=== PATIENT | female | born 1985 | race Two or more races ===

== ENCOUNTER 2017-11-06 14:49 | Inpatient (IN) | payer OTHER ==
[2017-11-06 15:38] LABS: APPEARANCE,URINE SLIGHTLY-CLOUDY; BILIRUBIN,URINE NEGATIVE (NEGATIVE); CALCIUM OXALATE CRYSTALS,URINE FEW /HPF; COLOR,URINE YELLOW; GLUCOSE, URINE NEGATIVE (NEGATIVE); KETONES,URINE NEGATIVE (NEGATIVE); LEUKOCYTE ESTERASE,URINE TRACE (NEGATIVE); NITRITE,URINE NEGATIVE (NEGATIVE); PROTEIN,URINE 30 mg/dL (NEGATIVE); URINE SPECIFIC GRAVITY 1.026
[2017-11-06 15:42] LABS: AMNISURE (ROM) NEGATIVE (NEGATIVE)
[2017-11-06 15:51] LABS: URINE AMPHETAMINES SCREEN NEGATIVE; URINE BARBITURATES SCREEN NEGATIVE; URINE BENZODIAZEPINES SCREEN NEGATIVE; URINE COCAINE SCREEN NEGATIVE; URINE MARIJUANA (THC) SCREEN NEGATIVE; URINE METHADONE SCREEN NEGATIVE; URINE PHENCYCLIDINE SCREEN NEGATIVE
[2017-11-06 16:53] LABS: ABSOLUTE BASOPHILS # (AUTO) 0.1 10^3/uL (0.0-0.2); ABSOLUTE EOSINOPHILS # (AUTO) 0.1 10^3/uL (0.0-0.6); ABSOLUTE LYMPHOCYTES (AUTO) 1.6 10^3/uL (0.5-4.7); ABSOLUTE MONOCYTES (AUTO) 0.9 10^3/uL (0.1-1.4); ABSOLUTE NEUT (AUTO) 8.6 10^3/uL (1.7-8.2); BASOPHILS % (AUTO) 0.5 % (0-2); EOSINOPHILS % (AUTO) 0.5 % (0-6); HEMATOCRIT 32.6 % (36.0-47.0); HEMOGLOBIN 10.7 g/dL (12.0-15.5); LYMPHOCYTES % (AUTO) 14.1 % (13-45); MEAN CORPUSCULAR HEMOGLOBIN 24.4 pg (27.0-33.4); MEAN CORPUSCULAR VOLUME 74 fl (80-97); MONOCYTES % (AUTO) 8.4 % (3-13); PLATELET COUNT 184 10^3/uL (150-450); RED CELL DISTRIBUTION WIDTH 15.5 % (11.5-14.0); SEGMENTED NEUTROPHILS % (AUTO) 76.5 % (42-78); TOTAL CELLS COUNTED % (AUTO) 100 %; WHITE BLOOD COUNT 11.2 10^3/uL (4.0-10.5)
[2017-11-06] MEDS ORDERED: RINGERS SOLUTION,LACTATED 300 ML IV ONE (16:57)
[2017-11-06] MEDS ORDERED: RINGERS SOLUTION,LACTATED 1,000 ML IV PRN (16:57)
[2017-11-06 17:15] LABS: ALANINE AMINOTRANSFERASE 21 U/L (9-52); ALBUMIN 3.5 g/dL (3.5-5.0); ALKALINE PHOSPHATASE 314 U/L (38-126); ANION GAP 10 (5-19); ASPARTATE AMINO TRANSFERASE 15 U/L (14-36); BILIRUBIN,DIRECT 0.2 mg/dL (0.0-0.4); BILIRUBIN,TOTAL 0.8 mg/dL (0.2-1.3); BLOOD UREA NITROGEN 8 mg/dL (7-20); CALCIUM 9.6 mg/dL (8.4-10.2); CARBON DIOXIDE 22 mmol/L (22-30); CHLORIDE 106 mmol/L (98-107); GLUCOSE 66 mg/dL (75-110); LDH 458 U/L (313-618); POTASSIUM 3.9 mmol/L (3.6-5.0); TOTAL PROTEIN 6.7 g/dL (6.3-8.2); URIC ACID 4.5 mg/dL (2.5-6.2)
[2017-11-06 17:43] LABS: UR PRO/CREAT RATIO RESULT 0.1 mg/mg (0.0-0.2); URINE PROTEIN 28.4 mg/dL (<12)
[2017-11-06] MEDS ORDERED: DINOPROSTONE 10 MG VAGINAL INSERT.SR ONE (20:30)
[2017-11-06] MEDS: DINOPROSTONE 10 MG VAGINAL INSERT.SR PV PRN (21:01)
[2017-11-06] MEDS ORDERED: HYDRALAZINE HCL INJ/PF 20 MG/1 ML SDV IV ONE (23:55)
--- NOTE | 2017-11-07 01:01 | L&D Progress Notes ---
PROGRESS NOTES Datetime Report Generated by CPN: 11/07/2017 01:01 PROGRESS NOTE Impression: Normal Progression of Labor Plan: Continue Present Management; Induction Informed Consent Obtained: Vaginal Delivery; Induction of Labor Informed Consent Obtained: Vaginal Delivery; Risks, Benefits and Alternatives Discussed Vital Signs : Reviewed; Within Normal Limits Comment: FHR baseline 160. irregular contractions on Cervidil. Spontaneous intermittent decels unrelated to contractions. Currently reassuring FHR tracing. VAGINAL EXAM Dilatation: 0 Effacement: th Station: hi Contractions: none MEMBRANES Membranes: Intact FETUS A Presentation: Vertex SIGNATURE SIGNATURE: [id number] Signature: with User ID: [email or web address]
[2017-11-07] MEDS ORDERED: LIDOCAINE 1% INJ-PF (10 MG/ML) 30 ML SDV ONE (03:24)
[2017-11-07] MEDS ORDERED: MISOPROSTOL 0.2 MG TABLET ONE (03:24)
[2017-11-07] MEDS ORDERED: OXYTOCIN/NORMAL SALINE 20 UNIT/1,000 ML RTUINJ ONE (03:24)
[2017-11-07] MEDS ORDERED: HYDRALAZINE HCL INJ/PF 20 MG/1 ML SDV IV ONE (03:52)
[2017-11-07] MEDS ORDERED: HYDRALAZINE HCL INJ/PF 20 MG/1 ML SDV ONE ×2 (03:57)
[2017-11-07] MEDS: DINOPROSTONE 10 MG VAGINAL INSERT.SR PV PRN (04:04)
--- NOTE | 2017-11-07 04:32 | L&D Progress Notes ---
PROGRESS NOTES Datetime Report Generated by CPN: 11/07/2017 04:32 PROGRESS NOTE Impression: Normal Progression of Labor Procedures: Sterile Vag Exam Plan: Continue Present Management Informed Consent Obtained: Vaginal Delivery; Risks, Benefits and Alternatives Discussed Vital Signs : Reviewed Comment: Admitted to labor and delivery for IOL due to severe oligo with SDP 1.1cm. in to evaluate patient due to cervidil fell out - currently not on pitocin. Cvx now 1. Pt has h/o possible malignant hyperthermia. Anesthesia was consulted and feels that it is unsafe for epidural at this time. baby is reassuring but not reactive at this time but not able to give IV narcotics at this time. Anticpate . Reviewed pudendal block if desires. VAGINAL EXAM Dilatation: 4 Effacement: 90 Station: -1 Contractions: q 2-3 FETUS A FHR - Baseline: 155 Monitoring: External US Variability: Moderate 6-25bpm Accelerations: 15X15 Decelerations: None FHR Category: Category I FETUS C SIGNATURE: [id number] Signature: with User ID: [email or web address]
[2017-11-07] MEDS ORDERED: FENTANYL CITRATE INJ/PF 100 MCG/2 ML AMPUL IV ONE (05:08)
[2017-11-07] MEDS ORDERED: FENTANYL CITRATE INJ/PF 100 MCG/2 ML AMPUL ONE (05:17)
[2017-11-07] MEDS ORDERED: NALOXONE HCL INJ/PF 0.4 MG/1 ML SDV ONE (05:33)
[2017-11-07] MEDS ORDERED: ACETAMINOPHEN WITH CODEINE #3 TABLET ONE (06:57)
[2017-11-07] MEDS ORDERED: IBUPROFEN 800 MG TABLET ONE (06:58)
[2017-11-07] MEDS ORDERED: ZOLPIDEM TARTRATE 5 MG TABLET PO PRN (07:00)
[2017-11-07] MEDS ORDERED: DIPH/PERTUSS(ACELL)/TETANUS VAC/PF 0.5 ML SYR (>=10YO) IM PRN (07:00)
[2017-11-07] MEDS ORDERED: ACETAMINOPHEN WITH CODEINE #3 TABLET PO PRN ×2 (07:00)
[2017-11-07] MEDS ORDERED: DIBUCAINE 1% OINTMENT 28 GM TP PRN (07:00)
[2017-11-07] MEDS ORDERED: BENZOCAINE/MENTHOL AEROSOL SPRAY 56 ML TOP PRN (07:00)
[2017-11-07] MEDS ORDERED: MEASLES,MUMPS&RUBELLA VACC/PF 0.5 ML VIAL SUBCUT PRN (07:00)
[2017-11-07] MEDS ORDERED: OXYTOCIN/NORMAL SALINE 20 UNIT/1,000 ML RTUINJ IV PRN (07:00)
[2017-11-07] MEDS ORDERED: GLYCERIN/WITCH HAZEL LEAF 1 EACH MED..PAD TP PRN (07:01)
[2017-11-07] MEDS ORDERED: PROMETHAZINE HCL 25 MG TABLET PO PRN (07:01)
[2017-11-07] MEDS ORDERED: PSEUDOEPHEDRINE HCL 30 MG TABLET PO PRN (07:01)
[2017-11-07] MEDS ORDERED: MAGNESIUM HYDROXIDE SUSP 30 ML UDCUP PO PRN (07:01)
[2017-11-07] MEDS ORDERED: PROMETHAZINE HCL 25 MG SUPP.RECT PR PRN (07:01)
[2017-11-07] MEDS ORDERED: NA PHOS,M-B/NA PHOS,DI-BA (ADULT) 133 ML ENEMA PR PRN (07:01)
[2017-11-07] MEDS ORDERED: PROMETHAZINE HCL INJ 25 MG/1 ML VIAL IV PRN (07:01)
[2017-11-07] MEDS ORDERED: DIPHENHYDRAMINE HCL 25 MG CAPSULE PO PRN (07:01)
[2017-11-07] MEDS ORDERED: ACETAMINOPHEN 650 MG SUPP.RECT PR PRN (07:01)
[2017-11-07] MEDS ORDERED: NIFEDIPINE 30 MG TAB.ER.24 PO ONE (07:28)
[2017-11-07] MEDS ORDERED: NIFEDIPINE 30 MG TAB.ER.24 PO SCH (08:00)
--- NOTE | 2017-11-07 08:25 | Warning Signs in Babies ---
VOD Warning Signs Datetime Report Generated by [facility]: 11/07/2017 08:24 VOD#608 -Warning Signs in Babies: Needs to be viewed. (11/07/2017 07:45:Madina Watson RN)
--- NOTE | 2017-11-07 10:10 | Admission Physical ---
Datetime Report Generated by CPN: 11/07/2017 10:10 CURRENT ADMISSION Chief Complaint: Signs/Symptoms Gestational HTN Indication for Induction: Post Dates; Gestational HTN Indication for Induction: Term, Intrauterine ; No Active Labor; Intact Membranes; Induction of Labor Admit Plan: Admit to Unit; Initiate Labor Induction Protocol ALLERGIES Medication Allergies: No Medication Allergies: No Known Allergies (11/06/2017) Latex: No Latex Allergies OBSTETRICAL HISTORY EDC: 10/31/2017 00:00 : 4 Para: 1 Term: 1 : 0 SAB: 1 IAB: 1 Ectopic: 0 Livin Cesareans: 0 VBACs: 0 Multiple Births: 0 Gestational Diabetes: No Rh Sensitization: No Incompetent Cervix: No PAULA: No Infertility: No ART Treatment: No Uterine Anomaly: No IUGR: No Hx Previous C/S: No Macrosomia: No Hx Loss/Stillborn: No PIH: Yes Hx : No Placenta Previa/Abruption: No Depression/PP Depression: Yes PTL/PROM: No Post Hemorrhage: No Current Procedures: Ultrasound; NST Obstetrical History Comments: G1: , 2009 G2: EAB 2015 G3: 2015 G4: current, oligo (was poly as of 09/2017 then oligo determined from [facility] u/s), GHTN, uterine fibroid SEE RECORDS Alcohol: No Marijuana : No Cocaine: No Other Illicit Drugs: No Cigarettes: Former Smoker. [id number] MEDICAL HISTORY Diabetes: No Blood Transfusion: No Pulmonary Disease (Asthma, TB): No Breast Disease: No Hypertension: No Sleeping Car Porter Surgery: No Heart Disease: No Hosp/Surgery: Yes Autoimmune Disorder: No Anesthetic Complications: No Kidney Disease: No Abnormal Pap Smear: No Neuro/Epilepsy: No Psychiatric Disorders: Yes Other Medical Diseases: No Hepatitis/Liver Disease: No Significant Family History: No Varicosities/Phlebitis: No Trauma/Violence : No Thyroid Dysfunction: No Medical History Comments: childbirth, depression and anxiety, anesthesia reaction (wisdom teeth surgery; possible malignant hyperthermia?) INFECTIOUS HISTORY Gonorrhea: No Genital Herpes: Yes Chlamydia: No Tuberculosis: No Syphilis: No Hepatitis: No HIV/AIDS Exposure: No Rash or Viral Illness: No HPV: No Infectious History Comments: acycolvir daily, genital herpes (last outbreak 6 years ago) PHYSICAL EXAM General: Normal HEENT: Normal Neurologic: Normal Thyroid: Deferred Heart: Normal Lungs: Normal Breast: Deferred Back: Normal Abdomen: Normal Genitourinary Exam: Normal Extremities: Normal DTRs: Normal Pelvic Type: Adequate Vital Signs: Reviewed Details Vital Signs: mild and severe range BPs VAGINAL EXAM Dilatation: 4 Dilatation: 0 Effacement: 90 Effacement: th Station: -1 Station: hi Contraction Comments: q 2-3 Contraction Comments: none MEMBRANES Membranes: Intact FETUS A EGA: 40.6 FHR- Baseline: 155 Variability: Moderate 6-25bpm Accelerations: 15X15 Decelerations: None Presentation: Vertex Admit Comment: 32yo at 40+6ega presents for evaluation from the office due to elevated BPs and GILLES 2.03 (SDP is 1.1cm). Severe Oligohydramnios with GHTN. PIH labs within normal limits at this time. Pt with severe range pressures upon presenting to L_D then normalized. Pt is late transfer of care at 36+6ega. Negative GBS. H/o HSV - no lesions, no prodrome. No lesions on exam. care complicated by obesity. normal Glucola. Reviewed IOL due to severe oligohydramnios. IOL consents reviewed. Plan for cervidil IOL and then transition to pitocin when appropriate. PLANS FOR LABOR AND DELIVERY Labor and Delivery: None Pain Management: Epidural Feeding Preference: Breast Benefit of Breast Feed Discussed: Yes Circumcision: Yes INFORMED CONSENT Informed Consent Obtained: Vaginal Delivery; Risks, Benefits and Alternatives Discussed Informed Consent Obtained: Vaginal Delivery; Induction of Labor Informed Consent Obtained: Vaginal Delivery; Risks, Benefits and Alternatives Discussed Signature: with User ID: [email or web address]
[2017-11-07] MEDS: DOCUSATE SODIUM 100 MG CAPSULE PO SCH ×2 (10:34→18:26)
[2017-11-07] MEDS: SENNOSIDES/DOCUSATE 8.6-50 MG 1 EACH TABLET PO SCH (10:34)
[2017-11-07] MEDS: FERROUS SULFATE 325 MG TABLET PO SCH ×2 (10:35→18:26)
[2017-11-07] MEDS: PRENATAL VITAMIN W DHA CAPSULE PO SCH (10:35)
[2017-11-07] MEDS: FAMOTIDINE 20 MG TABLET PO SCH ×2 (10:35→21:47)
[2017-11-07] MEDS: IBUPROFEN 800 MG TABLET PO SCH ×2 (14:00→21:47)
[2017-11-08] MEDS: IBUPROFEN 800 MG TABLET PO SCH ×2 (05:28→14:19)
[2017-11-08 07:50] LABS: HEMATOCRIT 31.4 % (36.0-47.0); HEMOGLOBIN 10.1 g/dL (12.0-15.5); MEAN CORPUSCULAR HEMOGLOBIN 24.2 pg (27.0-33.4); MEAN CORPUSCULAR HGB CONC 32.2 g/dL (32.0-36.0); MEAN CORPUSCULAR VOLUME 75 fl (80-97); PLATELET COUNT 184 10^3/uL (150-450); RED BLOOD COUNT 4.19 10^6/uL (3.72-5.28); RED CELL DISTRIBUTION WIDTH 16.1 % (11.5-14.0); WHITE BLOOD COUNT 13.1 10^3/uL (4.0-10.5)
[2017-11-08] MEDS ORDERED: NIFEDIPINE 30 MG TAB.ER.24 PO SCH (08:00)
[2017-11-08 08:30] VITALS: BP 143/92
[2017-11-08] MEDS: SENNOSIDES/DOCUSATE 8.6-50 MG 1 EACH TABLET PO SCH (09:39)
[2017-11-08] MEDS: PRENATAL VITAMIN W DHA CAPSULE PO SCH (09:39)
[2017-11-08] MEDS: DOCUSATE SODIUM 100 MG CAPSULE PO SCH (09:40)
[2017-11-08] MEDS: FAMOTIDINE 20 MG TABLET PO SCH (09:40)
[2017-11-08] MEDS: FERROUS SULFATE 325 MG TABLET PO SCH (09:41)
--- NOTE | 2017-11-08 09:59 | PDOC PROGRESS REPORT ---
Subjective-OB Subjective: Post Delivery Day: 32 year old. Denies any needs at this time Doing well, no c/o, breast feeding, voiding, moderate bleeding Physical Exam (OB) Vital Signs: Temp Pulse Resp BP Pulse Ox 98.8 F 78 16 143/92 H 99 11/08/17 08:25 11/08/17 08:25 11/08/17 08:25 11/08/17 08:25 11/08/17 08:25 Intake & Output 11/07/17 11/08/17 11/09/17 06:59 06:59 06:59 Weight 117.934 kg - PIH/Pre-Eclampsia DTR's: 2 + Clonus: Negative Headache: Absent Epigastric Pain: No Visual Changes: No - Lochia Lochia Amount: Scant < 10 ml Lochia Color: Rubra/Red - Abdomen Description: Soft, Round Hernia Present: No Fundal Description: Firm, Midline Fundal Height: u/u - u/2 Objective-Diagnostic Laboratory: 11/08/17 07:23 11/06/17 16:34 11/08/17 07:23 WBC 13.1 H RBC 4.19 Hgb 10.1 L Hct 31.4 L MCV 75 L MCH 24.2 L MCHC 32.2 RDW 16.1 H Plt Count 184 Assessment and Plan(PN) - Assessment and Plan (1) Gestational hypertension Qualifiers: Trimester: unspecified trimester Qualified Code(s): O13.9 - Gestational [ -induced] hypertension without significant proteinuria, unspecified trimester Is this a current diagnosis for this admission?: Yes (2) Oligohydramnios in third trimester Qualifiers: Fetus number: single or unspecified fetus Qualified Code(s): O41.03X0 - Oligohydramnios, third trimester, not applicable or unspecified Is this a current diagnosis for this admission?: Yes - Time Spent with Patient Time with patient: Less than 15 minutes Medications reviewed and adjusted accordingly: Yes - Disposition Anticipated Discharge: Home Within: within 24 hours
--- NOTE | 2017-11-08 11:02 | PDOC DISCHARGE SUMMARY ---
Final Diagnosis Discharge Date: 11/08/17 - Final Diagnosis (1) Gestational hypertension Is this a current diagnosis for this admission?: Yes (2) Oligohydramnios in third trimester Is this a current diagnosis for this admission?: Yes Discharge Data - Discharge Medication Prescriptions: Nifedipine [Procardia XL 30 mg Tablet] 60 mg PO DAILY@0800 #30 tab.er.24 Home Medications: Pnv 102/Iron/Folate 1/Dss/Dha [Vitafol Fe+ Docusate Combo Pck] 1 cap PO DAILY Nifedipine [Procardia XL 30 mg Tablet] 60 mg PO DAILY@0800 #30 tab.er.24 Gestational Age: 41 Reason(s) for Admission: Induction of Labor, Obstetric Complications Admission Note: Oligohydramnios Procedures: NST, Ultrasound Intrapartum Procedure(s): Spontaneous Vaginal Delivery - [place] Data Baby 1 Male at 1 minute: 8 at 5 minutes: 9 Weight: 3.487 kg Home with Mother: Yes Complications: No - Diagnosis Test Laboratory: Temp Pulse Resp BP Pulse Ox 98.8 F 78 16 143/92 H 99 11/08/17 08:25 11/08/17 08:25 11/08/17 08:25 11/08/17 08:25 11/08/17 08:25 11/06/17 11/06/17 11/08/17 15:16 16:34 07:23 RBC 4.40 4.19 Hgb 10.7 L 10.1 L Hct 32.6 L 31.4 L Urine Opiates Screen NEGATIVE - Discharge information/Instructions Discharge Activity: Activity As Tolerated, No Lifting Over 10 Pounds, No Lifting /Push/Pulling, Pelvic Rest Discharge Diet: As Tolerated, Regular Disposition: HOME, SELF-CARE Follow up with: [facility] in: 2, Days - check BP in office on Thursday
--- NOTE | 2017-11-24 15:36 | Delivery Summary ---
Del Sum A-C Datetime Report Generated by CPN: 11/24/2017 15:35 DELIVERY PERSONNEL DELIVERY PERSONNEL: [id number] Delivery Doctor:: Claudia Dover MD Labor and Delivery Nurse:: Mana Dumont RNmash filter cloth changer Nurse:: Mana Dumont RNmash filter cloth changer Nurse:: Oralia Stearns RNmash filter cloth changer Nurse:: Oralia Stearns RN Retail Merchandiser:: Krystal Mujica RN Medical Scribe/PHARMACY TEACHER: Josué Rendon CNA Additional Personnel: : Krystal Mujica RN MATERNAL INFORMATION Delivery Anesthesia: None Delivery Anesthesia: None Medications After Delivery: Pitocin Drip 20 Units/1000ml NSS Medications After Delivery: Pitocin Bolus-Please Comment; Pitocin Drip 20 Units/1000ml NSS Estimated Blood Loss (ml): 300 Maternal Complications: None Provider Comments: VMI delivered in DARLE[place] presentation. No nuchal cord. Shoulders and body delivered without difficulty. Cord doubly clamped and cut. Infant to warmer for NRP. Placenta delivered intact spontaneously. FF at U. no perineal lacerations. No maternal anesthesia. No repair needed. mother and baby stable upon provider leaving the room. LABOR SUMMARY EDC: 10/31/2017 00:00 No. Babies in Womb: 1 Attempted: No Labor Anesthesia: None LABOR INFORMATION Reason for Induction: Oligohydramnios Onset of Labor: 11/07/2017 03:03 Complete Dilatation: 11/07/2017 06:39 Cervical Ripening Agents: Cervidil Oxytocin: N/A Group B Beta Strep: negative Antibiotics # of Doses: n/a Antibiotics Time of Last Dose: n/a Name of Antibiotic Given: n/a Steroids Given: None Reason Steroids Not Administered: Not Applicable MEMBRANES Membranes Rupture Method: Spontaneous Rupture of Membranes: 11/07/2017 03:01 Length of Rupture (hr): 3.77 Amniotic Fluid Color: Clear Amniotic Fluid Amount: Scant STAGES OF LABOR Stage 1 hr: 3 Stage 1 min: 36 Stage 2 hr: 0 Stage 2 min: 8 Stage 3 hr: 0 Stage 3 min: 3 Total Time in Labor hr: 3 Total Time in Labor min: 47 VAGINAL DELIVERY Episiotomy: None Laceration #1: None Laceration Extension #1: N/A Laceration Repair: Not Applicable Sponge Count Correct: Yes Sharps Count Correct: Yes CSECTION DELIVERY Secondary Indication: N/A CSection Incidence: N/A Labor: N/A Elective: N/A CSection Incision: N/A BABY A INFORMATION Infant Delivery Date/Time: 11/07/2017 06:47 Method of Delivery: Vaginal Born in Route : No : N/A Forceps: N/A Vacuum Extraction: N/A Shoulder Dystocia : No PRESENTATION/POSITION BABY A Presentation: Cephalic Cephalic Presentation: Vertex Vertex Position: Left Occipital Anterior Breech Presentation: N/A PLACENTA INFORMATION BABY A Placenta Delivery Time : 11/07/2017 06:50 Placenta Method of Delivery: Spontaneous Placenta Status: Delivered SCORES BABY A Heart Rate 1 min: >100 bpm Resp Effort 1 min: Good Cry Reflex Irritability 1 min: Cough or Sneeze or Pulls Away Muscle Tone 1 min: Active Motion Color 1 min: Blue/Pale Resuscitation Effort 1 min: Tactile Stimulation SCORE 1 MIN: 8 Heart Rate 5 min: >100 bpm Resp Effort 5 min: Good Cry Reflex Irritability 5 min: Cough or Sneeze or Pulls Away Muscle Tone 5 min: Active Motion Color 5 min: Body [place], Extremities Blue Resuscitation Effort 5 min: Tactile Stimulation SCORE 5 MIN: 9 INFANT INFORMATION BABY A Gestational Age at Delivery: 41.0 Gestational Status: Late Term- 41- 41.6 Weeks Infant Outcome : Liveborn Condition : Stable Sex: Male IDENTIFICATION BABY A Infant Verification Date/Time: 11/07/2017 07:22 ID Band Number: [id number] Mother's Name Verified: Yes RN Verifying Infant: Jermaine Watson RN/Jamison Nixon, RN WEIGHT/LENGTH BABY A Birthweight (gm): 3485 Weight (lb): 7 Infant Weight (oz): 11 Length (in): 20.50 Infant Length (cm): 52.07 CORD INFORMATION BABY A No. Cord Vessels: 3 Nuchal Cord : N/A Cord Blood Taken: Yes-For Storage (Mom's Blood type +) Infant Suction: Mouth; Nose ASSESSMENT BABY A Physical Findings at Delivery: Within Normal Limits Physical Findings- Other: to [facility] for evaluation by splitting machine operator @ [id number] Respirations: Appears Normal Skin to Skin: Yes Skin to Skin Time (min): 60 Assistant Corporate Secretary/ALS Called : No BABY B INFORMATION : N/A SIGNATURES Signature: with User ID: [email or web address]
== END 2017-11-08 17:10 | disposition home or self-care (01) | DRG 774 ==
LOC: ER 14:49 → LR 17:03 → 2N 11-07 10:08
PROVIDERS: ADMIT Student in an Organized Health Care Education/Training Program; ATTEND Student in an Organized Health Care Education/Training Program
PROC: 10E0XZZ Delivery of Products of Conception, External Approach (ICD-10-PCS; principal; 2017-11-06)
PROC: 4A1HXCZ Monitoring of Products of Conception, Cardiac Rate, External Approach (ICD-10-PCS; 2017-11-06)
DX: O41.03X0 Oligohydramnios, third trimester, not applicable or unspecified (principal); O98.32 Other infections with a predominantly sexual mode of transmission complicating childbirth; A60.04 Herpesviral vulvovaginitis; O24.429 Gestational diabetes mellitus in childbirth, unspecified control; O48.0 Post-term pregnancy; O34.13 Maternal care for benign tumor of corpus uteri, third trimester; D25.9 Leiomyoma of uterus, unspecified; O99.344 Other mental disorders complicating childbirth; Z79.899 Other long term (current) drug therapy; F41.9 Anxiety disorder, unspecified; Z87.891 Personal history of nicotine dependence; Z3A.41 41 weeks gestation of pregnancy; Z37.0 Single live birth
CPT/HCPCS: 36415; 80053; 80307; 81001; 82570; 83615; 84112; 84156; 84550; 85025; 85027; 86592; 86850; 86900; 86901; 88307; J0360; J2310; J2590; J3010; J3490

== ENCOUNTER 2019-02-13 02:07 | Emergency (ER) | payer OTHER ==
[2019-02-13 02:48] LABS: ABSOLUTE BASOPHILS # (AUTO) 0.1 10^3/uL (0.0-0.2); ABSOLUTE EOSINOPHILS # (AUTO) 0.1 10^3/uL (0.0-0.6); ABSOLUTE LYMPHOCYTES (AUTO) 3.6 10^3/uL (0.5-4.7); ABSOLUTE MONOCYTES (AUTO) 0.8 10^3/uL (0.1-1.4); ABSOLUTE NEUT (AUTO) 6.7 10^3/uL (1.7-8.2); BASOPHILS % (AUTO) 0.5 % (0-2); EOSINOPHILS % (AUTO) 0.9 % (0-6); HEMATOCRIT 35.3 % (36.0-47.0); HEMOGLOBIN 12.1 g/dL (12.0-15.5); MEAN CORPUSCULAR HEMOGLOBIN 28.3 pg (27.0-33.4); MEAN CORPUSCULAR HGB CONC 34.4 g/dL (32.0-36.0); MEAN CORPUSCULAR VOLUME 82 fl (80-97); PLATELET COUNT 363 10^3/uL (150-450); RED BLOOD COUNT 4.29 10^6/uL (3.72-5.28); RED CELL DISTRIBUTION WIDTH 13.7 % (11.5-14.0); SEGMENTED NEUTROPHILS % (AUTO) 59.6 % (42-78); TOTAL CELLS COUNTED % (AUTO) 100 %; WHITE BLOOD COUNT 11.2 10^3/uL (4.0-10.5)
[2019-02-13] MEDS ORDERED: ACETAMINOPHEN 325 MG TABLET PO ONE (03:07)
--- NOTE | 2019-02-13 03:07 | ER Document Report ---
ED General - General Chief Complaint: Vaginal Bleeding Stated Complaint: VAGINAL BLEEDING/ Time Seen by Provider: 02/13/19 02:20 Primary Care Provider: [facility] [Provider Group] - Follow up tomorrow JAKE PARADA MD [ACTIVE STAFF] - Follow up as needed TRAVEL OUTSIDE OF THE [place] IN LAST 30 DAYS: No - HPI Notes: Patient is a 33-year-old female at 9 weeks gestation that presents to the emergency department for chief complaint of vaginal bleeding. Patient reports history of 1 miscarriage, 1 and 2 vaginal deliveries in the past. She began having bright red vaginal bleeding 4 days ago however the bleeding became more severe tonight. She reports severe lower abdominal cramping that has become constant. She reports bleeding through 1 pad an hour for the last 2 hours. She denies history of bleeding disorder personally or in her family. She does not know her blood type. She denies associated lightheadedness. Past Medical History: Negative Past Surgical History: Negative Social History: Denies drugs alcohol and tobacco Family History: Reviewed and noncontributory for presenting illness Allergies: Reviewed, see documented allergy list. REVIEW OF SYSTEMS: CONSTITUTIONAL : No fever No chills No diaphoresis No recent illness EENT: No vision changes No congestion No sore throat CARDIOVASCULAR: No chest pain No palpitations RESPIRATORY: No shortness of breath No cough No difficulty breathing GASTROINTESTINAL: abdominal pain No nausea No vomiting No diarrhea GENITOURINARY: Vaginal bleeding No dysuria No hematuria No difficulty urinating MUSCULOSKELETAL: No back pain No leg pain No arm pain SKIN: No rashes No lesions LYMPHATIC: No swollen, enlarged glands. NEUROLOGICAL: No lightheadedness No headache No weakness No paresthesias PSYCHIATRIC: No anxiety No depression PHYSICAL EXAMINATION: Vital signs reviewed, nursing noted reviewed. GENERAL: Well-appearing, well-nourished and in no acute distress. HEAD: Atraumatic, normocephalic. EYES: Eyes appear normal, extraocular movements intact, sclera anicteric, conjunctiva are normal. ENT: nares patent, oropharynx clear without exudates. Moist mucous membranes. NECK: Normal range of motion, supple without lymphadenopathy LUNGS: Breath sounds clear to auscultation bilaterally and equal. No wheezes rales or rhonchi. HEART: Regular rate and rhythm without murmurs ABDOMEN: Soft, mild suprapubic tenderness, unable to palpate uterus, normoactive bowel sounds. No rebound, guarding, or rigidity. No masses appreciated. : Moderate amount of active vaginal bleeding, dark red with clots. EXTREMITIES: Nontender, good range of motion, no pitting or edema. NEUROLOGICAL: No focal neurological deficits. Moves all extremities spontaneously Motor and sensory grossly intact on exam. PSYCH: Anxious, normal affect. SKIN: Warm, Dry, normal turgor, no rashes or lesions noted on exposed skin - Related Data Allergies/Adverse Reactions: No Known Allergies Allergy (Verified 02/13/19 02:09) Past Medical History - General Last Menstrual Period: december 03 - Social History Smoking Status: Never Smoker Chew tobacco use (# tins/day): No Frequency of alcohol use: None Drug Abuse: None Family History: Reviewed & Not Pertinent Patient has suicidal ideation: No Patient has homicidal ideation: No Renal/ Medical History: Denies: Hx Peritoneal Dialysis Physical Exam - Vital signs Vitals: Temp Pulse Resp BP Pulse Ox 99.1 F 89 16 144/92 H 97 02/13/19 02:12 02/13/19 02:12 02/13/19 02:12 02/13/19 02:12 02/13/19 02:12 Course - Re-evaluation Re-evalutation: 02/13/19 03:06 Vitals reviewed. Nursing notes reviewed. Patient is hemodynamically stable. She does have a moderate amount of bleeding consistent with likely miscarriage 02/13/19 05:25 Patient's ultrasound shows complete miscarriage with no retained products. Patient has no anemia. She did have improvement of her lightheadedness with fluids and her cramping has resolved. She has remained hemodynamically stable. She will follow closely with OFFICE ENGINEER in 1 day for close re-evaluation. Laboratory 02/13/19 02/13/19 02/13/19 02:35 02:35 02:35 WBC 11.2 H RBC 4.29 Hgb 12.1 Hct 35.3 L MCV 82 MCH 28.3 MCHC 34.4 RDW 13.7 Plt Count 363 Seg Neutrophils % 59.6 Lymphocytes % 32.0 Monocytes % 7.0 Eosinophils % 0.9 Basophils % 0.5 Absolute Neutrophils 6.7 Absolute Lymphocytes 3.6 Absolute Monocytes 0.8 Absolute Eosinophils 0.1 Absolute Basophils 0.1 Beta HCG, Quant 42168.00 H Total Beta HCG POSITIVE Blood Type A POSITIVE Rhogam Indicated RHOGAM NOT INDICATED Obstetrics Ultrasound 02/13/19 03:04 IMPRESSION: 1. No intrauterine identified. Differential considerations include miscarriage, ectopic , and less likely early normal . Close continued clinical, laboratory, and sonographic follow-up recommended. 02/13/19 05:31 - Vital Signs Vital signs: Temp Pulse Resp BP Pulse Ox 99.1 F 89 16 144/92 H 97 02/13/19 02:12 02/13/19 02:12 02/13/19 02:12 02/13/19 02:12 02/13/19 02:12 - Laboratory Result Diagrams: 02/13/19 02:35 Laboratory results interpreted by me: 02/13/19 02/13/19 02:35 02:35 WBC 11.2 H Hct 35.3 L Beta HCG, Quant 76036.00 H Discharge - Discharge Clinical Impression: Complete miscarriage Condition: Stable Disposition: HOME, SELF-CARE Instructions: Miscarriage (OM) Additional Instructions: Please return to the emergency department if you have any worsening, or concern of your symptoms. Please return to the emergency department if you develop chest pain, difficulty breathing, severe abdominal pain, or ongoing vomiting. Please follow-up with your primary care physician in 2-3 days and any other recommended physicians. If prescribed, take all medications as directed. If you have any questions or concerns do not hesitate to return the emergency department for evaluation. Referrals: JAKE PARADA MD [ACTIVE STAFF] - Follow up as needed [facility] [Provider Group] - Follow up tomorrow
[2019-02-13] MEDS ORDERED: NORMAL SALINE 1000 ML 1,000 ML IV ONE (03:28)
--- NOTE | 2019-02-13 05:10 | RADIOLOGY REPORT (SQ) ---
EXAM DESCRIPTION: US TRANSVAGINAL COMPLETED DATE/TME: 02/13/2019 03:04 CLINICAL HISTORY: 33 years Female, vaginal bleeding COMPARISON: None. TECHNIQUE: Complete first trimester obstetrical ultrasound. Reported LMP 12/12/2018 FINDINGS: Uterus: Uterus measures 11.7 x 6.1 x 6.4 cm. No myometrial abnormalities. Gestational sac: No gestational sac identified. pole: Not identified. heart motion: Not identified. Yolk sac: Not identified. Placenta: Not identified. Right ovary: Not identified due to overlying structures. Left ovary: The left ovary measures 3.9 x 2.6 x 3.3 cm. Simple cyst in the left ovary measuring 2.9 cm in greatest dimension. This is almost certainly benign. No imaging follow-up recommended. Adnexa: No large adnexal masses. Free fluid: No free fluid identified. Duplex imaging: Color and spectral Doppler imaging demonstrates flow in the left ovary. IMPRESSION: 1. No intrauterine identified. Differential considerations include miscarriage, ectopic , and less likely early normal . Close continued clinical, laboratory, and sonographic follow-up recommended.
[2019-02-13 06:49] VITALS: BP 125/81
== END 2019-02-13 06:47 | disposition home or self-care (01) ==
LOC: ER 02:07
DX: O03.9 Complete or unspecified spontaneous abortion without complication (principal); Z3A.09 9 weeks gestation of pregnancy
CPT/HCPCS: 99284; 96360; 96361; 86900; 86901; 36415; 84702; 85025; 76817; J7030

== ENCOUNTER 2020-04-03 16:36 | Outpatient (CLI) | payer OTHER ==
[2020-04-03 18:02] LABS: ABSOLUTE LYMPHOCYTES (AUTO) 1.8 10^3/uL (0.5-4.7); ABSOLUTE MONOCYTES (AUTO) 0.9 10^3/uL (0.1-1.4); ABSOLUTE NEUT (AUTO) 8.5 10^3/uL (1.7-8.2); BASOPHILS % (AUTO) 0.2 % (0-2); EOSINOPHILS % (AUTO) 0.3 % (0-6); HEMATOCRIT 31.3 % (36.0-47.0); HEMOGLOBIN 10.2 g/dL (12.0-15.5); LYMPHOCYTES % (AUTO) 15.9 % (13-45); MEAN CORPUSCULAR HEMOGLOBIN 23.3 pg (27.0-33.4); MEAN CORPUSCULAR HGB CONC 32.5 g/dL (32.0-36.0); MEAN CORPUSCULAR VOLUME 72 fl (80-97); PLATELET COUNT 255 10^3/uL (150-450); RED BLOOD COUNT 4.36 10^6/uL (3.72-5.28); RED CELL DISTRIBUTION WIDTH 15.9 % (11.5-14.0); SEGMENTED NEUTROPHILS % (AUTO) 75.6 % (42-78); TOTAL CELLS COUNTED % (AUTO) 100 %; WHITE BLOOD COUNT 11.2 10^3/uL (4.0-10.5)
[2020-04-03 18:23] LABS: ALBUMIN 3.4 g/dL (3.5-5.0); ALKALINE PHOSPHATASE 176 U/L (38-126); ANION GAP 7 (5-19); ASPARTATE AMINO TRANSFERASE 16 U/L (14-36); BILIRUBIN,TOTAL 1.1 mg/dL (0.2-1.3); BLOOD UREA NITROGEN 2 mg/dL (7-20); CALCIUM 8.9 mg/dL (8.4-10.2); CARBON DIOXIDE 23 mmol/L (22-30); CHLORIDE 104 mmol/L (98-107); GLUCOSE 72 mg/dL (75-110); POTASSIUM 3.6 mmol/L (3.6-5.0); TOTAL PROTEIN 6.7 g/dL (6.3-8.2); URIC ACID 3.3 mg/dL (2.5-6.2)
[2020-04-03 19:14] LABS: APPEARANCE,URINE CLEAR; BILIRUBIN,URINE NEGATIVE (NEGATIVE); COLOR,URINE STRAW; GLUCOSE, URINE NEGATIVE (NEGATIVE); KETONES,URINE TRACE mg/dL (NEGATIVE); LEUKOCYTE ESTERASE,URINE NEGATIVE (NEGATIVE); NITRITE,URINE NEGATIVE (NEGATIVE); PROTEIN,URINE NEGATIVE (NEGATIVE); URINE SPECIFIC GRAVITY 1.003; UROBILINOGEN,URINE NEGATIVE mg/dL (<2.0)
--- NOTE | 2020-04-03 19:22 | Non Stress Test Report ---
Non Stress Test Datetime Report Generated by CPN: 04/03/2020 19:22 DEMOGRAPHIC EGA NST: 39.3 INDICATION Indication for Study (NST) Other: IUP at 39.3; PreE workup VITAL SIGNS Temperature - NST: 98.5 Pulse - NST: 90 RESP - NST: 18 NBPSYS NST: 120 NBPDIA NST: 82 MONITORING Time on Monitor: 04/03/2020 16:52 Time off Monitor: 04/03/2020 18:59 NST Duration: 127 NST INTERVENTIONS NST Interventions: PO Hydration BABY A: [id number] BABY A Movement : Present Contraction Frequency : Irregular FHR Baseline : 140 Accelerations : 15X15 Decelerations : None Variability : Moderate 6-25bpm NST Review: Meets Criteria for Reactive NST NST Review and Verified By : JNiebu,RN NST Results: Reactive NST REPORT Report Trigger: Send Report
[2020-04-03 19:28] LABS: URINE AMPHETAMINES SCREEN NEGATIVE; URINE BARBITURATES SCREEN NEGATIVE; URINE BENZODIAZEPINES SCREEN NEGATIVE; URINE COCAINE SCREEN NEGATIVE; URINE MARIJUANA (THC) SCREEN NEGATIVE; URINE METHADONE SCREEN NEGATIVE; URINE PHENCYCLIDINE SCREEN NEGATIVE
[2020-04-03 19:32] LABS: UR PRO/CREAT RATIO RESULT 0.5 mg/mg (0.0-0.2); URINE CREATININE 32.2 mg/dL (16-327); URINE PROTEIN 15.8 mg/dL (<12)
== END 2020-04-03 19:06 | disposition home or self-care (01) ==
LOC: LC 16:36
PROVIDERS: ATTEND Obstetrics & Gynecology
DX: O14.93 Unspecified pre-eclampsia, third trimester (principal); Z3A.39 39 weeks gestation of pregnancy
CPT/HCPCS: 36415; 59025; 80053; 80307; 81001; 82570; 83615; 84156; 84550; 85025

== ENCOUNTER 2020-04-07 04:27 | Inpatient (IN) | payer OTHER ==
[2020-04-07] MEDS ORDERED: PENICILLIN G-K 5 MILLION UNIT VIAL ONE ×5 (04:40→21:14)
[2020-04-07] MEDS ORDERED: PENICILLIN G POTASSIUM 5,000,000 UNIT in DEXTROSE 5%-WATER 100 ML IV ONE (05:00)
[2020-04-07] MEDS ORDERED: OXYTOCIN 10 UNIT/ML VIAL ONE (05:07)
[2020-04-07] MEDS ORDERED: LIDOCAINE 1% INJ-PF (10 MG/ML) 30 ML SDV ONE (05:07)
[2020-04-07] MEDS ORDERED: OXYTOCIN/0.9 % SODIUM CHLORIDE 30 UNIT/500 ML RTUINJ ONE (05:07)
[2020-04-07] MEDS ORDERED: MISOPROSTOL 0.2 MG TABLET ONE (05:07)
[2020-04-07] MEDS: RINGERS SOLUTION,LACTATED 1,000 ML IV PRN ×2 (05:49→10:31)
[2020-04-07 05:57] LABS: APPEARANCE,URINE CLOUDY; BILIRUBIN,URINE NEGATIVE (NEGATIVE); COLOR,URINE AMBER; GLUCOSE, URINE NEGATIVE (NEGATIVE); KETONES,URINE 20 mg/dL (NEGATIVE); LEUKOCYTE ESTERASE,URINE NEGATIVE (NEGATIVE); NITRITE,URINE NEGATIVE (NEGATIVE); PROTEIN,URINE 100 mg/dL (NEGATIVE); URINE SPECIFIC GRAVITY 1.017
[2020-04-07 06:27] LABS: URINE AMPHETAMINES SCREEN NEGATIVE; URINE BARBITURATES SCREEN NEGATIVE; URINE BENZODIAZEPINES SCREEN NEGATIVE; URINE COCAINE SCREEN NEGATIVE; URINE MARIJUANA (THC) SCREEN NEGATIVE; URINE METHADONE SCREEN NEGATIVE; URINE PHENCYCLIDINE SCREEN NEGATIVE
[2020-04-07 06:38] LABS: ABSOLUTE EOSINOPHILS # (AUTO) 0.1 10^3/uL (0.0-0.6); ABSOLUTE LYMPHOCYTES (AUTO) 2.2 10^3/uL (0.5-4.7); BASOPHILS % (AUTO) 0.2 % (0-2); EOSINOPHILS % (AUTO) 0.5 % (0-6); HEMATOCRIT 30.3 % (36.0-47.0); HEMOGLOBIN 9.9 g/dL (12.0-15.5); LYMPHOCYTES % (AUTO) 16.6 % (13-45); MEAN CORPUSCULAR HEMOGLOBIN 23.2 pg (27.0-33.4); MEAN CORPUSCULAR HGB CONC 32.6 g/dL (32.0-36.0); MEAN CORPUSCULAR VOLUME 71 fl (80-97); MONOCYTES % (AUTO) 7.6 % (3-13); PLATELET COUNT 246 10^3/uL (150-450); RED BLOOD COUNT 4.25 10^6/uL (3.72-5.28); RED CELL DISTRIBUTION WIDTH 15.9 % (11.5-14.0); SEGMENTED NEUTROPHILS % (AUTO) 75.1 % (42-78); TOTAL CELLS COUNTED % (AUTO) 100 %; WHITE BLOOD COUNT 13.3 10^3/uL (4.0-10.5)
[2020-04-07] MEDS ORDERED: OXYTOCIN/0.9 % SODIUM CHLORIDE 30 UNIT/500 ML RTUINJ IV PRN (08:12)
--- NOTE | 2020-04-07 08:21 | Admission Physical ---
Datetime Report Generated by CPN: 04/07/2020 08:21 CURRENT ADMISSION Chief Complaint: Suspected Ruptured Membranes Chief Complaint Other: Reports SROM at home 0340 that was clear. Copious amount. No f/c No ctx. No VB or LOF Indication for Induction: PROM Admit Impression : Term, Intrauterine ; Ruptured Membranes Admit Plan: Admit to Unit; Initiate Labor Protocol; Initiate Labor Augmentation Protocol ALLERGIES Medication Allergies: No Medication Allergies: No Known Allergies (04/07/2020) Latex: No Latex Allergies OBSTETRICAL HISTORY EDC: 04/07/2020 00:00 : 6 Para: 2 Term: 2 : 0 SAB: 2 IAB: 1 Livin Cesareans: 0 VBACs: 0 Multiple Births: 0 Gestational Diabetes: No Rh Sensitization: No Incompetent Cervix: No PAULA: No Infertility: No ART Treatment: No Uterine Anomaly: No IUGR: No Hx Previous C/S: No Macrosomia: No Hx Loss/Stillborn: No PIH: Yes Hx : No Placenta Previa/Abruption: No Depression/PP Depression: Yes PTL/PROM: No Post Hemorrhage: No Current Procedures: Ultrasound Obstetrical History Comments: g1-2009, , 40+5, 38 hours, female, 6lb 12oz, no complications g2-2013, 9 week sab g3-2016-eab g4-2017, , 41 weeks, 17 hours, male,7lb 11oz, no complications g5-2019, sab g6-current, gbs pos, on zoloft SEE RECORDS Alcohol: No Marijuana : No Cocaine: No Other Illicit Drugs: No Cigarettes: Never Smoker. [id number] MEDICAL HISTORY Diabetes: No Blood Transfusion: No Pulmonary Disease (Asthma, TB): No Breast Disease: No Hypertension: No [employer] Specialist Surgery: No Heart Disease: No Hosp/Surgery: Yes Autoimmune Disorder: No Anesthetic Complications: No Kidney Disease: No Abnormal Pap Smear: No Neuro/Epilepsy: No Psychiatric Disorders: No Other Medical Diseases: No Hepatitis/Liver Disease: No Significant Family History: No Varicosities/Phlebitis: No Trauma/Violence : No Thyroid Dysfunction: No Medical History Comments: anxiety and depression requiring zoloft, childbirth x 2, obesity, anemia INFECTIOUS HISTORY Gonorrhea: No Genital Herpes: Yes Chlamydia: No Syphilis: No HIV/AIDS Exposure: No HPV: No Infectious History Comments: hsv 2 per patient and medical history. patient denies ever having had an outbreak PHYSICAL EXAM General: Normal HEENT: Normal Neurologic: Normal Thyroid: Normal Heart: Normal Lungs: Normal Breast: Normal Back: Normal Abdomen: Normal Genitourinary Exam: Normal Extremities: Normal DTRs: Normal Pelvic Type: Adequate VAGINAL EXAM Dilatation: 1 Effacement: 50 Station: -2 Contraction Comments: no contractions MEMBRANES Pooling: Positive Membranes: Ruptured Amniotic Fluid Color: Clear FETUS A EGA: 40.0 Monitoring: External US FHR- Baseline: 130 Variability: Moderate 6-25bpm Accelerations: 15X15 FHR Category: Category I Presentation: Vertex Admit Comment: at 40.0 wks EGA with PROM (spontaneous) -Admit to LDR -NPO except ice. IVFs LR at 125 cc/hr after 1 liter bolus -CEFM and toco -GBS positive, PCN IV -Remote hx 10 yr ago of positive HSV serology but no personal hx of outbreak. HAS NOT been on valtrex. Exam via speculum negative. Serology ordered to verify -Start pitocin low dose protocol -Does not want epidural -Hx 2 prior , plan for PLANS FOR LABOR AND DELIVERY Labor and Delivery: None Pain Management: Natural Feeding Preference: Breast Benefit of Breast Feed Discussed: Yes Circumcision: N/A INFORMED CONSENT Informed Consent Obtained: Vaginal Delivery; Section Delivery; Induction of Labor; Vacuum/Forceps Assist; Risks, Benefits and Alternatives Discussed Signature: with User ID: [email or web address] : with User ID: [email or web address]
[2020-04-07] MEDS: PENICILLIN G POTASSIUM 2,500,000 UNIT in DEXTROSE 5%-WATER 50 ML IV SCH ×4 (09:12→21:18)
[2020-04-07 10:29] LABS: ALBUMIN 3.5 g/dL (3.5-5.0); ALKALINE PHOSPHATASE 184 U/L (38-126); ANION GAP 8 (5-19); ASPARTATE AMINO TRANSFERASE 16 U/L (14-36); BILIRUBIN,TOTAL 1.3 mg/dL (0.2-1.3); BLOOD UREA NITROGEN 3 mg/dL (7-20); CARBON DIOXIDE 23 mmol/L (22-30); CHLORIDE 103 mmol/L (98-107); GLUCOSE 79 mg/dL (75-110); POTASSIUM 3.8 mmol/L (3.6-5.0); TOTAL PROTEIN 6.7 g/dL (6.3-8.2); URIC ACID 3.6 mg/dL (2.5-6.2)
[2020-04-07 11:10] LABS: UR PRO/CREAT RATIO RESULT 0.4 mg/mg (0.0-0.2); URINE CREATININE 56.5 mg/dL (16-327); URINE PROTEIN 21.2 mg/dL (<12)
[2020-04-07] MEDS ORDERED: ACETAMINOPHEN 325 MG TABLET PO PRN (15:19)
[2020-04-07] MEDS ORDERED: ACETAMINOPHEN 325 MG TABLET ONE ×2 (15:20→15:22)
[2020-04-08] MEDS ORDERED: PENICILLIN G-K 5 MILLION UNIT VIAL ONE (00:56)
[2020-04-08] MEDS: PENICILLIN G POTASSIUM 2,500,000 UNIT in DEXTROSE 5%-WATER 50 ML IV SCH ×2 (01:08→05:14)
[2020-04-08] MEDS ORDERED: FENTANYL CITRATE INJ/PF 100 MCG/2 ML AMPUL ONE (02:44)
[2020-04-08] MEDS ORDERED: FENTANYL CITRATE INJ/PF 100 MCG/2 ML AMPUL IV ONE (02:48)
[2020-04-08] MEDS ORDERED: OXYTOCIN/0.9 % SODIUM CHLORIDE 30 UNIT/500 ML RTUINJ ONE (03:02)
[2020-04-08] MEDS ORDERED: PSEUDOEPHEDRINE HCL 30 MG TABLET PO PRN (03:13)
[2020-04-08] MEDS ORDERED: ACETAMINOPHEN WITH CODEINE #3 TABLET PO PRN ×2 (03:13)
[2020-04-08] MEDS ORDERED: PROMETHAZINE HCL 25 MG SUPP.RECT PR PRN (03:13)
[2020-04-08] MEDS ORDERED: ACETAMINOPHEN 650 MG SUPP.RECT PR PRN (03:13)
[2020-04-08] MEDS ORDERED: NA PHOS,M-B/NA PHOS,DI-BA (ADULT) 133 ML ENEMA PR PRN (03:13)
[2020-04-08] MEDS ORDERED: PROMETHAZINE HCL 25 MG TABLET PO PRN (03:13)
[2020-04-08] MEDS ORDERED: BENZOCAINE/MENTHOL AEROSOL SPRAY 56 ML TOP PRN (03:13)
[2020-04-08] MEDS ORDERED: DIPHENHYDRAMINE HCL 25 MG CAPSULE PO PRN (03:13)
[2020-04-08] MEDS ORDERED: ZOLPIDEM TARTRATE 5 MG TABLET PO PRN (03:13)
[2020-04-08] MEDS ORDERED: OXYTOCIN/0.9 % SODIUM CHLORIDE 30 UNIT/500 ML RTUINJ IV PRN (03:13)
[2020-04-08] MEDS ORDERED: DIPH/PERTUSS(ACELL)/TETANUS VAC/PF 0.5 ML SYR (>=10YO) IM PRN (03:13)
[2020-04-08] MEDS ORDERED: MEASLES,MUMPS&RUBELLA VACC/PF 0.5 ML VIAL SUBCUT PRN (03:13)
[2020-04-08] MEDS ORDERED: GLYCERIN/WITCH HAZEL LEAF 1 EACH MED..WIPE TP PRN (03:13)
[2020-04-08] MEDS ORDERED: PROMETHAZINE HCL INJ 25 MG/1 ML VIAL IV PRN (03:13)
[2020-04-08] MEDS ORDERED: MAGNESIUM HYDROXIDE SUSP 30 ML UDCUP PO PRN (03:13)
[2020-04-08] MEDS ORDERED: DIBUCAINE 1% OINTMENT 28 GM TP PRN (03:13)
[2020-04-08] MEDS ORDERED: IBUPROFEN 800 MG TABLET ONE (03:15)
[2020-04-08] MEDS: IBUPROFEN 800 MG TABLET PO SCH ×3 (04:02→22:02)
--- NOTE | 2020-04-08 05:08 | Delivery Summary ---
Del Sum A-C Datetime Report Generated by CPN: 04/08/2020 05:08 DELIVERY PERSONNEL DELIVERY PERSONNEL: [id number] Delivery Doctor:: Gabrielle Page MD Labor and Delivery Nurse:: Maria Luz Grigsby RN Labor and Delivery Nurse:: Tawnya Dumont RN Nursery Nurse:: Halley Aguillon RN Nursery Nurse:: Evelia Shields RN Workers' Compensation Commissioner/GUEST SERVICES LEAD: Lelia Joshua, PIPE OUT WORKER MATERNAL INFORMATION Delivery Anesthesia: None Medications After Delivery: Pitocin 30 Units in 500ml NS/D5W Delivery QBL: 149 Maternal Complications: Other Complication Details: PROM untreated HSV Provider Comments: Called to room patient 3+ station and pushing. Spontaneously delivered viable female , vertex presentation, DARLEEN After the head, the rest ot the body followed easily. INfant vigorous and cord clamping delayed for 30 seconds.. Small amount of terminal meconium noted. After cord doubly clamped and cut, infant placed Mothers chest.. Both and Mother stable. LABOR SUMMARY EDC: 04/07/2020 00:00 No. Babies in Womb: 1 Attempted: No Labor Anesthesia: IV Sedation LABOR INFORMATION Reason for Induction: Not Applicable Onset of Labor: 04/08/2020 00:17 Complete Dilatation: 04/08/2020 02:57 Oxytocin: Augmentation Group B Beta Strep: Positive Antibiotics # of Doses: 6 Antibiotics Time of Last Dose: 0108 Name of Antibiotic Given: PCN Steroids Given: None Reason Steroids Not Administered: Not Applicable MEMBRANES Membranes Rupture Method: Spontaneous Rupture of Membranes: 04/07/2020 03:40 Length of Rupture (hr): 23.33 Amniotic Fluid Color: Clear Amniotic Fluid Amount: Moderate Amniotic Fluid Odor: Normal STAGES OF LABOR Stage 1 hr: 2 Stage 1 min: 40 Stage 2 hr: 0 Stage 2 min: 3 Stage 3 hr: 0 Stage 3 min: 6 Total Time in Labor hr: 2 Total Time in Labor min: 49 VAGINAL DELIVERY Episiotomy: None Laceration #1: Perineal Laceration Extension #1: First Degree Laceration Repair: Yes Laceration Repair Note: 3-0 chromic on an SH needle Sponge Count Correct: N/A CSECTION DELIVERY Primary Indication: N/A Secondary Indication: N/A CSection Incidence: N/A Labor: N/A Elective: N/A CSection Incision: N/A BABY A INFORMATION Infant Delivery Date/Time: 04/08/2020 03:00 Method of Delivery: Vaginal Nurse Controlled Delivery: No Born in Route : No : N/A Forceps: N/A Vacuum Extraction: N/A Shoulder Dystocia : No PRESENTATION/POSITION BABY A Presentation: Cephalic Cephalic Presentation: Vertex Vertex Position: Left Occipital Anterior Breech Presentation: N/A PLACENTA INFORMATION BABY A Placenta Delivery Time : 04/08/2020 03:06 Placenta Method of Delivery: Spontaneous Placenta Status: Delivered SCORES BABY A Heart Rate 1 min: >100 bpm Resp Effort 1 min: Good Cry Reflex Irritability 1 min: Cough or Sneeze or Pulls Away Muscle Tone 1 min: Active Motion Color 1 min: Blue/Pale SCORE 1 MIN: 8 Heart Rate 5 min: >100 bpm Resp Effort 5 min: Good Cry Reflex Irritability 5 min: Cough or Sneeze or Pulls Away Muscle Tone 5 min: Active Motion Color 5 min: Body [place], Extremities Blue SCORE 5 MIN: 9 INFORMATION BABY A Gestational Age at Delivery: 40.1 Gestational Status: Full Term- 39- 40.6 Weeks Infant Outcome : Liveborn Infant Condition : Stable Infant Sex: Female IDENTIFICATION BABY A Infant Verification Date/Time: 04/08/2020 03:16 ID Band Number: [id number] Mother's Name Verified: Yes RN Verifying Infant: rn [facility] Additional Verifying Personnel: rn ring WEIGHT/LENGTH BABY A Birthweight (gm): 3356 Infant Weight (lb): 7 Weight (oz): 6 Infant Length (in): 19.75 Length (cm): 50.17 CORD INFORMATION BABY A No. Cord Vessels: 3 Nuchal Cord : N/A Cord Blood Taken: Yes-For Storage (Mom's Blood type +) Suction: Mouth; Nose ASSESSMENT BABY A Complications: None Infant Complications- Other: Terminal mec Physical Findings at Delivery: Within Normal Limits Physical Findings- Other: See full nursery second vp hr assessment Infant Respirations: Appears Normal Skin to Skin: Yes Infant Care By: Tracie Pal RN _ Jamison Silvaley RN Transferred To: Remains with Mother BABY B INFORMATION : N/A SIGNATURES Signature: with User ID: [email or web address] : with User ID: [email or web address]
[2020-04-08] MEDS: SENNOSIDES/DOCUSATE 8.6-50 MG 1 EACH TABLET PO SCH (09:42)
[2020-04-08] MEDS: FERROUS SULFATE 325 MG TABLET PO SCH ×2 (09:42→17:08)
[2020-04-08] MEDS: PRENATAL VITAMIN W DHA CAPSULE PO SCH (09:42)
[2020-04-08] MEDS: DOCUSATE SODIUM 100 MG CAPSULE PO SCH ×2 (09:42→17:08)
[2020-04-08] MEDS: FAMOTIDINE 20 MG TABLET PO SCH ×2 (09:42→22:02)
[2020-04-09] MEDS: IBUPROFEN 800 MG TABLET PO SCH ×3 (06:02→21:15)
[2020-04-09 07:08] LABS: MEAN CORPUSCULAR HEMOGLOBIN 23.6 pg (27.0-33.4); MEAN CORPUSCULAR HGB CONC 33.2 g/dL (32.0-36.0); MEAN CORPUSCULAR VOLUME 71 fl (80-97); PLATELET COUNT 222 10^3/uL (150-450); RED CELL DISTRIBUTION WIDTH 15.9 % (11.5-14.0); WHITE BLOOD COUNT 11.7 10^3/uL (4.0-10.5)
--- NOTE | 2020-04-09 09:05 | PDOC PROGRESS REPORT ---
Subjective-OB Progress Note for:: 04/09/20 Physical Exam (OB) Vital Signs: Temp Pulse Resp BP Pulse Ox 98.5 F 82 18 151/89 H 100 04/09/20 07:03 04/09/20 07:03 04/09/20 07:03 04/09/20 07:03 04/09/20 07:03 Intake & Output 04/08/20 04/09/20 04/10/20 06:59 06:59 06:59 Intake Total 588 Balance 588 - PIH/Pre-Eclampsia DTR's: 1 + Clonus: Negative Headache: Absent Epigastric Pain: No Visual Changes: No - Lochia Lochia Amount: Scant < 10 ml Lochia Color: Rubra/Red - Abdomen Description: Soft Hernia Present: No Bowel Sounds: Normoactive Flatus Presence: Present Stool: No Fundal Description: Firm, Midline Fundal Height: u/u - u/2 Objective-Diagnostic Laboratory: 04/09/20 06:41 04/07/20 09:40 04/09/20 06:41 WBC 11.7 H RBC 3.80 Hgb 9.0 L Hct 27.0 L MCV 71 L MCH 23.6 L MCHC 33.2 RDW 15.9 H Plt Count 222
[2020-04-09] MEDS: PRENATAL VITAMIN W DHA CAPSULE PO SCH (09:15)
[2020-04-09] MEDS: FERROUS SULFATE 325 MG TABLET PO SCH ×2 (09:15→17:10)
[2020-04-09] MEDS: DOCUSATE SODIUM 100 MG CAPSULE PO SCH ×2 (09:15→17:10)
[2020-04-09] MEDS: FAMOTIDINE 20 MG TABLET PO SCH ×2 (09:15→21:16)
[2020-04-09] MEDS: SENNOSIDES/DOCUSATE 8.6-50 MG 1 EACH TABLET PO SCH (09:16)
[2020-04-10] MEDS: IBUPROFEN 800 MG TABLET PO SCH (06:25)
[2020-04-10 08:23] VITALS: BP 158/100
--- NOTE | 2020-04-10 09:01 | PDOC PROGRESS REPORT ---
Subjective-OB Progress Note for:: 04/10/20 Subjective: Doing well, no c/o, ready to go home, breast feeding, voiding, taking Zoloft at home Physical Exam (OB) Vital Signs: Temp Pulse Resp BP Pulse Ox 97.9 F 64 18 158/100 H 100 04/10/20 07:55 04/10/20 07:55 04/10/20 07:55 04/10/20 07:55 04/10/20 07:55 Intake & Output 04/09/20 04/10/20 04/11/20 06:59 06:59 06:59 Intake Total 500 Balance 500 - PIH/Pre-Eclampsia DTR's: 1 + Clonus: Negative Headache: Absent Epigastric Pain: No Visual Changes: No - Lochia Lochia Amount: Scant < 10 ml Lochia Color: Serosa/Brown - Abdomen Description: Soft Hernia Present: No Fundal Description: Firm, Midline Fundal Height: u/u - u/2 Objective-Diagnostic Laboratory: 04/09/20 06:41 04/07/20 09:40 Assessment and Plan(PN) - Assessment and Plan (1) Anemia Qualifiers: Anemia type: iron deficiency Is this a current diagnosis for this admission?: Yes (2) 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 Is this a current diagnosis for this admission?: Yes (3) Obesity Qualifiers: Obesity type: due to excess calories Body mass index: BMI 40.0-44.9 Is this a current diagnosis for this admission?: Yes (4) Depression with anxiety Is this a current diagnosis for this admission?: Yes (6) Qualifiers: Weeks of gestation: 40 weeks Qualified Code(s): Z3A.40 - 40 weeks gestation of Is this a current diagnosis for this admission?: Yes (7) Gestational hypertension Qualifiers: Trimester: unspecified trimester Qualified Code(s): O13.9 - Gestational [-induced] hypertension without significant proteinuria, unspecified trimester Is this a current diagnosis for this admission?: Yes (8) Oligohydramnios in third trimester Qualifiers: Fetus number: single or unspecified fetus Qualified Code(s): O41.03X0 - Oligohydramnios, third trimester, not applicable or unspecified Is this a current diagnosis for this admission?: Yes - Time Spent with Patient Time with patient: Less than 15 minutes Medications reviewed and adjusted accordingly: Yes - Disposition Anticipated Discharge: Home Within: within 24 hours - recheck BP
--- NOTE | 2020-04-10 09:09 | PDOC DISCHARGE SUMMARY ---
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 Is this a current diagnosis for this admission?: Yes (3) Obesity Is this a current diagnosis for this admission?: Yes (4) Depression with anxiety Is this a current diagnosis for this admission?: Yes (6) Is this a current diagnosis for this admission?: Yes (7) Gestational hypertension Is this a current diagnosis for this admission?: Yes (8) Oligohydramnios in third trimester Is this a current diagnosis for this admission?: Yes - Additional Information Resuscitation Status: Full Code - recheck BP this AM Discharge Diet: As Tolerated Discharge Activity: Activity As Tolerated Referrals: ROXANNA PASCUAL MD [Primary Care Provider] - (RTC 1 week for BP check) Home Medications: Ferrous Sulfate [Ferosul] 1 tab PO DAILY 04/03/20 Sertraline HCl [Zoloft 50 mg Tablet] 0.5 tab PO DAILY 04/03/20 HPI Gestational Age: 40.1 Reason(s) for Admission: PROM, Group B Strep Positive Admission Note: Pitocin augmentation, HSV untreated Procedures: NST, Ultrasound Intrapartum Procedure(s): Spontaneous Vaginal Delivery Complication(s): Laceration-Perineal Laceration-Degree: 1st Complication(s) Note: girl, 7-6, apgars 8/9 Hospital Course Hospital Course: routine Results Laboratory Results: WBC 11.7 10^3/uL (4.0-10.5) H 04/09/20 06:41 RBC 3.80 10^6/uL (3.72-5.28) 04/09/20 06:41 Hgb 9.0 g/dL (12.0-15.5) L 04/09/20 06:41 Hct 27.0 % (36.0-47.0) L 04/09/20 06:41 MCV 71 fl (80-97) L 04/09/20 06:41 MCH 23.6 pg (27.0-33.4) L 04/09/20 06:41 MCHC 33.2 g/dL (32.0-36.0) 04/09/20 06:41 RDW 15.9 % (11.5-14.0) H 04/09/20 06:41 Plt Count 222 10^3/uL (150-450) 04/09/20 06:41 Lymph % (Auto) 16.6 % (13-45) 04/07/20 05:22 Motley % (Auto) 7.6 % (3-13) 04/07/20 05:22 Eos % (Auto) 0.5 % (0-6) 04/07/20 05:22 Baso % (Auto) 0.2 % (0-2) 04/07/20 05:22 Absolute Neuts (auto) 10.0 10^3/uL (1.7-8.2) H 04/07/20 05:22 Absolute Lymphs (auto) 2.2 10^3/uL (0.5-4.7) 04/07/20 05:22 Absolute Monos (auto) 1.0 10^3/uL (0.1-1.4) 04/07/20 05:22 Absolute Eos (auto) 0.1 10^3/uL (0.0-0.6) 04/07/20 05:22 Absolute Basos (auto) 0.0 10^3/uL (0.0-0.2) 04/07/20 05:22 Seg Neutrophils % 75.1 % (42-78) 04/07/20 05:22 Sodium 134.0 mmol/L (137-145) L 04/07/20 09:40 Potassium 3.8 mmol/L (3.6-5.0) 04/07/20 09:40 Chloride 103 mmol/L (98-107) 04/07/20 09:40 Carbon Dioxide 23 mmol/L (22-30) 04/07/20 09:40 Anion Gap 8 (5-19) 04/07/20 09:40 BUN 3 mg/dL (7-20) L 04/07/20 09:40 Creatinine 0.41 mg/dL (0.52-1.25) L 04/07/20 09:40 Est GFR ( Amer) > 60 (>60) 04/07/20 09:40 Est GFR (MDRD) Non-Af > 60 (>60) 04/07/20 09:40 Glucose 79 mg/dL (75-110) 04/07/20 09:40 Uric Acid 3.6 mg/dL (2.5-6.2) 04/07/20 09:40 Calcium 9.0 mg/dL (8.4-10.2) 04/07/20 09:40 Total Bilirubin 1.3 mg/dL (0.2-1.3) 04/07/20 09:40 Direct Bilirubin 0.0 mg/dL (0.0-0.4) 04/07/20 09:40 Neonat Total Bilirubin Not Reportable 04/07/20 09:40 Neonat Direct Bilirubin Not Reportable 04/07/20 09:40 Neonat Indirect Bili Not Reportable 04/07/20 09:40 AST 16 U/L (14-36) 04/07/20 09:40 ALT 8 U/L (<35) 04/07/20 09:40 Alkaline Phosphatase 184 U/L (38-126) H 04/07/20 09:40 Lactate Dehydrogenase 158 U/L (120-246) 04/07/20 09:40 Total Protein 6.7 g/dL (6.3-8.2) 04/07/20 09:40 Albumin 3.5 g/dL (3.5-5.0) 04/07/20 09:40 Urine Color GIAN 04/07/20 04:37 Urine Appearance CLOUDY 04/07/20 04:37 Urine pH 6.0 (5.0-9.0) 04/07/20 04:37 Ur Specific [place] 1.017 04/07/20 04:37 Urine Protein 100 mg/dL (NEGATIVE) H 04/07/20 04:37 Urine Glucose (UA) NEGATIVE mg/dL (NEGATIVE) 04/07/20 04:37 Urine Ketones 20 mg/dL (NEGATIVE) H 04/07/20 04:37 Urine Blood SMALL (NEGATIVE) H 04/07/20 04:37 Urine Nitrite NEGATIVE (NEGATIVE) 04/07/20 04:37 Urine Bilirubin NEGATIVE (NEGATIVE) 04/07/20 04:37 Urine Urobilinogen 2.0 mg/dL (<2.0) H 04/07/20 04:37 Ur Leukocyte Esterase NEGATIVE (NEGATIVE) 04/07/20 04:37 Urine Creatinine 56.5 mg/dL (16-327) 04/07/20 10:00 Protein/Creatinin Ratio 0.4 mg/mg (0.0-0.2) H 04/07/20 10:00 Urine Total Protein 21.2 mg/dL (<12) H 04/07/20 10:00 Urine Ascorbic Acid NEGATIVE (NEGATIVE) 04/07/20 04:37 Urine Opiates Screen NEGATIVE 04/07/20 04:37 Urine Methadone Screen NEGATIVE 04/07/20 04:37 Ur Barbiturates Screen NEGATIVE 04/07/20 04:37 Ur Phencyclidine Scrn NEGATIVE 04/07/20 04:37 Ur Amphetamines Screen NEGATIVE 04/07/20 04:37 U Benzodiazepines Scrn NEGATIVE 04/07/20 04:37 Urine Cocaine Screen NEGATIVE 04/07/20 04:37 U Marijuana (THC) Screen NEGATIVE 04/07/20 04:37 RPR NONREACTIVE (NONREACTIVE) 04/07/20 05:22 HSV I&II IgM Ab 1.70 RATIO (0.00-0.90) H 04/07/20 09:40 HSV II Specific Ab 17.30 index (0.00-0.90) H 04/07/20 09:40 Blood Type A POSITIVE 04/07/20 07:38 Antibody Screen NEGATIVE 04/07/20 07:38 Plan Health Concerns: BP, anemia Plan of Treatment: d/c home, take iron and Zoloft, check BP in 1 week Goals: no complications Time Spent: Less than 30 Minutes
[2020-04-10] MEDS: PRENATAL VITAMIN W DHA CAPSULE PO SCH (09:38)
[2020-04-10] MEDS: FAMOTIDINE 20 MG TABLET PO SCH (09:38)
[2020-04-10] MEDS: DOCUSATE SODIUM 100 MG CAPSULE PO SCH (09:38)
[2020-04-10] MEDS: FERROUS SULFATE 325 MG TABLET PO SCH (09:38)
[2020-04-10] MEDS: SENNOSIDES/DOCUSATE 8.6-50 MG 1 EACH TABLET PO SCH (09:39)
[2020-04-10] MEDS ORDERED: NIFEDIPINE 30 MG TAB.ER.24 PO SCH (10:00)
== END 2020-04-10 11:51 | disposition home or self-care (01) | DRG 806 ==
LOC: LC 04:27 → LR 04:44 → 2S 04-08 05:22
PROVIDERS: ADMIT Obstetrics & Gynecology; ATTEND Obstetrics & Gynecology
PROC: 10E0XZZ Delivery of Products of Conception, External Approach (ICD-10-PCS; principal; 2020-04-08)
PROC: 0HQ9XZZ Repair Perineum Skin, External Approach (ICD-10-PCS; 2020-04-08)
DX: O77.0 Labor and delivery complicated by meconium in amniotic fluid (principal); O41.03X0 Oligohydramnios, third trimester, not applicable or unspecified; Z37.0 Single live birth; O99.824 Streptococcus B carrier state complicating childbirth; O13.4 Gestational [pregnancy-induced] hypertension without significant proteinuria, complicating childbirth; O70.0 First degree perineal laceration during delivery; Z3A.40 40 weeks gestation of pregnancy; O99.02 Anemia complicating childbirth; D64.9 Anemia, unspecified; O99.214 Obesity complicating childbirth; E66.9 Obesity, unspecified; O99.344 Other mental disorders complicating childbirth; F32.9 Major depressive disorder, single episode, unspecified; F41.9 Anxiety disorder, unspecified
CPT/HCPCS: 36415; 59025; 80053; 80307; 81005; 82570; 83615; 84156; 84550; 85025; 85027; 86592; 86695; 86696; 86850; 86900; 86901; 94760; C1758; J2540; J2590; J3010; J3490